=== PATIENT | male | born 1975 | race African-American/Black ===

== ENCOUNTER 2019-02-23 18:57 | Observation (INO) ==
[2019-02-23] MEDS ORDERED: SODIUM CHLORIDE 0.9% 1,000 ML IV STA (19:10)
[2019-02-23] MEDS ORDERED: INSULIN REGULAR 100 UNIT/ML IV STA (19:11)
[2019-02-23 20:05] LABS: Basophils # 0.1 10*3/uL (0.0-0.2); Basophils % 0.5 % (0.0-0.8); Eosinophils # 0.2 10*3/uL (0.0-0.87); Eosinophils % 2.1 % (0.00-10.9); Hematocrit 45.8 VOL% (42.0-52.0); Hemoglobin 14.7 GM/DL (14.0-18.0); Immature Granulocytes % 0.4 %; Immature Granulocytes Absolute 0.04 #; Lymphocytes # 3.2 10*3/uL (1.4-4.0); Lymphocytes % 34.6 % (21.2-54.2); Mean Corpuscular HGB Conc 32.1 GM/DL (32-36); Mean Corpuscular Volume 83.4 FL (87-102); Mean Platelet Volume 11.2 FL (9.6-12.0); Monocytes % 5.5 % (1.7-12.7); Neutrophils % 56.9 % (38.7-73.9); Platelet Count 311 T/CUMM (130-400); Red Blood Count 5.49 MC/CUMM (3.8-5.5); Red Cell Distribution Width 13.6 % (9.3-17.3); White Blood Count 9.4 T/CUMM (4-12)
[2019-02-23 20:08] LABS: Apearance,Urine CLEAR (Clear); Bilirubin,Urine Negative (Negative); Blood, Urine Negative (Negative); Glucose,Urine (UA) >=500 mg/dL (Negative); Ketones,Urine 20 mg/dL (Negative); Nitrite,Urine Negative (Negative); Protein,Urine Negative; RBC,Urine 1 /HPF (0-4); Urine Color Straw (Yellow); Urine Specific Gravity 1.032 (1.001-1.035); Urine Urobilinogen < 2.0 EU/DL (0.2-1.0)
[2019-02-23 20:30] LABS: Albumin 3.6 G/DL (3.4-5.0); Bilirubin,Total 0.8 MG/DL (0.2-1.0); Calcium 8.9 MG/DL (8.5-10.1); Osmolality,Calculated 277.8 MOS/KG (273-304); Total Protein 7.4 G/DL (6.4-8.3)
[2019-02-23] MEDS ORDERED: DEXTROSE 50% 25 GM/50 ML VIAL IV PRN ×2 (21:17)
[2019-02-23] MEDS ORDERED: ZALEPLON 5 MG CAPSULE PO PRN (21:17)
[2019-02-23] MEDS ORDERED: ACETAMINOPHEN 325 MG TABLET PO PRN (21:17)
[2019-02-23] MEDS ORDERED: GLUCAGON 1 MG VIAL IM PRN ×2 (21:17)
[2019-02-24] MEDS: SODIUM CHLORIDE 0.9% 1,000 ML IV SCH ×4 (00:26→23:57)
[2019-02-24] MEDS: ENOXAPARIN 40 MG/0.4 ML SYRINGE SUBCUT SCH ×2 (00:26→20:38)
[2019-02-24 07:18] LABS: Albumin 3.2 G/DL (3.4-5.0); Bilirubin,Total 1.1 MG/DL (0.2-1.0); Calcium 8.4 MG/DL (8.5-10.1); Osmolality,Calculated 282.8 MOS/KG (273-304); Total Protein 6.6 G/DL (6.4-8.3)
[2019-02-24] MEDS: INSULIN REGULAR 100 UNIT/ML SUBCUT SCH ×5 (08:34→20:49)
[2019-02-24] MEDS: PANTOPRAZOLE 40 MG TABLET PO SCH (08:36)
[2019-02-24] MEDS: INSULIN GLARGINE 100 UNIT/ML SUBCUT SCH (12:14)
[2019-02-25] MEDS: PANTOPRAZOLE 40 MG TABLET PO SCH (09:51)
[2019-02-25] MEDS: INSULIN REGULAR 100 UNIT/ML SUBCUT SCH ×3 (09:51→16:23)
[2019-02-25] MEDS: INSULIN GLARGINE 100 UNIT/ML SUBCUT SCH (09:53)
[2019-02-25] MEDS: SODIUM CHLORIDE 0.9% 1,000 ML IV SCH ×2 (09:57→16:21)
[2019-02-25 14:02] VITALS: BP 123/63
== END 2019-02-25 16:30 | disposition home or self-care (01) ==
LOC: EDUNIT# → EDBD → N.ED 18:57 → N.EDINP 18:57 → SUPCPDRO 21:17 → N.4E 22:08
PROVIDERS: ADMIT Internal Medicine; ATTEND Internal Medicine

== ENCOUNTER 2021-11-12 00:56 | Inpatient (IN) ==
[2021-11-12] MEDS ORDERED: SODIUM CHLORIDE 0.9% 1,000 ML IV STA ×4 (01:16→05:56)
[2021-11-12 01:29] LABS: Basophils # 0.1 10*3/uL (0.0-0.2); Basophils % 0.4 % (0.0-0.8); Eosinophils # 0.2 10*3/uL (0.0-0.87); Eosinophils % 1.7 % (0.00-10.9); Hemoglobin 14.3 GM/DL (14.0-18.0); Immature Granulocytes % 1.2 %; Immature Granulocytes Absolute 0.13 #; Lymphocytes # 2.4 10*3/uL (1.4-4.0); Lymphocytes % 21.1 % (21.2-54.2); Mean Corpuscular HGB Conc 31.8 GM/DL (32-36); Mean Corpuscular Volume 84.6 FL (87-102); Mean Platelet Volume 11.3 FL (9.6-12.0); Monocytes % 6.1 % (1.7-12.7); Neutrophils % 69.5 % (38.7-73.9); Platelet Count 358 T/CUMM (130-400); Red Blood Count 5.32 MC/CUMM (3.8-5.5); Red Cell Distribution Width 14.8 % (9.3-17.3); White Blood Count 11.2 T/CUMM (4-12)
[2021-11-12 01:48] LABS: Bilirubin,Total 0.4 MG/DL (0.20-1.00); Osmolality,Calculated 279.4 MOS/KG (273-304); Potassium 3.7 MMOL/L (3.5-5.1); Total Protein 6.4 G/DL (6.4-8.2)
[2021-11-12 02:55] LABS: Hematocrit 38.5 VOL% (42.0-52.0); Hemoglobin 12.4 GM/DL (14.0-18.0)
[2021-11-12 03:07] LABS: INR 1.2; PT Patient Result 13.1 SECS (10.5-12.0); Partial Thromboplastin Time 27.3 SECS (23.8-32.1)
[2021-11-12] MEDS ORDERED: SODIUM CHLORIDE 0.9% 1,000 ML IV PRN ×2 (04:16→05:04)
[2021-11-12] MEDS ORDERED: ALBUTEROL 2.5 MG/3 ML NEB RESP TX PRN (05:00)
[2021-11-12] MEDS ORDERED: MORPHINE 2 MG/1 ML SYRINGE IV PRN (05:04)
[2021-11-12] MEDS ORDERED: PHENYLEPHRINE DRIP 40 MG/250 ML PREMIX IV ONE (05:53)
[2021-11-12] MEDS ORDERED: PHENYLEPHRINE DRIP 40 MG/250 ML PREMIX IV PRN (05:56)
[2021-11-12] MEDS ORDERED: NOREPINEPHRINE 16 MG in SODIUM CHLORIDE 0.9% 234 ML IV PRN (05:57)
[2021-11-12] MEDS ORDERED: NOREPINEPHRINE 8 MG in SODIUM CHLORIDE 0.9% 242 ML IV PRN (05:58)
[2021-11-12] MEDS: SODIUM CHLORIDE 0.9% 1,000 ML IV SCH ×5 (06:40→21:30)
[2021-11-12] MEDS: PANTOPRAZOLE INJ 80 MG in SODIUM CHLORIDE 0.9% 100 ML IV ONE ×2 (06:50→09:18)
[2021-11-12] MEDS ORDERED: fentaNYL 100 MCG/2 ML VIAL ONE (06:52)
[2021-11-12] MEDS ORDERED: PANTOPRAZOLE INJ 80 MG in SODIUM CHLORIDE 0.9% 100 ML IV ONE (07:00)
[2021-11-12] MEDS ORDERED: propofoL 200 MG/20 ML VIAL IV ONE (07:45)
[2021-11-12] MEDS ORDERED: ONDANSETRON 4 MG/2 ML VIAL ONE (07:45)
[2021-11-12] MEDS ORDERED: SEVOFLURANE 1 UNIT/15 MINUTE INH ONE (07:45)
[2021-11-12] MEDS ORDERED: PHENYLEPHRINE 1 MG/10 ML SYRINGE IV ONE (07:45)
[2021-11-12] MEDS ORDERED: LIDOCAINE 2% 5 ML VIAL ONE (07:45)
[2021-11-12] MEDS ORDERED: ETOMIDATE 40 MG/20 ML VIAL IV ONE (07:45)
[2021-11-12] MEDS ORDERED: SUCCINYLCHOLINE 200 MG/10 ML VIAL ONE (07:46)
[2021-11-12] MEDS ORDERED: PANTOPRAZOLE INJ 200 MG in SODIUM CHLORIDE 0.9% 250 ML IV SCH (08:00)
[2021-11-12] MEDS ORDERED: EPINEPHrine 1 MG/ML VIAL ONE (08:23)
[2021-11-12] MEDS ORDERED: PROMETHAZINE INJ 12.5 MG in SODIUM CHLORIDE 0.9% 50 ML IV PRN (08:28)
[2021-11-12 09:34] LABS: Basophils % 0.2 % (0.0-0.8); Eosinophils % 0.2 % (0.00-10.9); Hemoglobin 11.4 GM/DL (14.0-18.0); Immature Granulocytes % 2.7 %; Immature Granulocytes Absolute 0.46 #; Lymphocytes # 2.7 10*3/uL (1.4-4.0); Lymphocytes % 16.3 % (21.2-54.2); Mean Corpuscular HGB Conc 31.7 GM/DL (32-36); Mean Corpuscular Volume 86.7 FL (87-102); Mean Platelet Volume 11.2 FL (9.6-12.0); Monocytes % 5.3 % (1.7-12.7); Neutrophils % 75.3 % (38.7-73.9); Platelet Count 434 T/CUMM (130-400); Red Blood Count 4.15 MC/CUMM (3.8-5.5); Red Cell Distribution Width 15.2 % (9.3-17.3); White Blood Count 16.7 T/CUMM (4-12)
[2021-11-12 10:30] LABS: Basophils % 0.2 % (0.0-0.8); Eosinophils % 0.1 % (0.00-10.9); Hematocrit 34.4 VOL% (42.0-52.0); Immature Granulocytes % 2.4 %; Immature Granulocytes Absolute 0.42 #; Lymphocytes # 2.5 10*3/uL (1.4-4.0); Lymphocytes % 14.4 % (21.2-54.2); Mean Corpuscular Volume 85.8 FL (87-102); Mean Platelet Volume 10.6 FL (9.6-12.0); Monocytes % 5.6 % (1.7-12.7); Neutrophils % 77.3 % (38.7-73.9); Platelet Count 396 T/CUMM (130-400); Red Blood Count 4.01 MC/CUMM (3.8-5.5); Red Cell Distribution Width 15.1 % (9.3-17.3); White Blood Count 17.6 T/CUMM (4-12)
[2021-11-12] MEDS: INSULIN LISPRO 100 UNIT/ML SUBCUT SCH ×3 (13:04→20:11)
[2021-11-12 14:15] LABS: Basophils % 0.2 % (0.0-0.8); Eosinophils % 0.2 % (0.00-10.9); Hematocrit 33.4 VOL% (42.0-52.0); Hemoglobin 10.6 GM/DL (14.0-18.0); Immature Granulocytes % 1.7 %; Immature Granulocytes Absolute 0.28 #; Lymphocytes # 2.9 10*3/uL (1.4-4.0); Lymphocytes % 17.9 % (21.2-54.2); Mean Corpuscular HGB Conc 31.7 GM/DL (32-36); Mean Corpuscular Volume 84.8 FL (87-102); Mean Platelet Volume 10.3 FL (9.6-12.0); Monocytes % 6.8 % (1.7-12.7); Neutrophils % 73.2 % (38.7-73.9); Platelet Count 373 T/CUMM (130-400); Red Blood Count 3.94 MC/CUMM (3.8-5.5); White Blood Count 16.1 T/CUMM (4-12)
[2021-11-12] MEDS: SUCRALFATE 1 GM/10 ML UDCUP PO SCH (18:34)
[2021-11-12 18:47] LABS: Basophils % 0.2 % (0.0-0.8); Eosinophils # 0.1 10*3/uL (0.0-0.87); Eosinophils % 0.4 % (0.00-10.9); Hemoglobin 9.8 GM/DL (14.0-18.0); Immature Granulocytes % 1.2 %; Immature Granulocytes Absolute 0.16 #; Lymphocytes # 2.8 10*3/uL (1.4-4.0); Mean Corpuscular HGB Conc 31.6 GM/DL (32-36); Mean Corpuscular Volume 86.6 FL (87-102); Mean Platelet Volume 10.7 FL (9.6-12.0); Monocytes % 6.9 % (1.7-12.7); Neutrophils % 70.3 % (38.7-73.9); Platelet Count 325 T/CUMM (130-400); Red Blood Count 3.58 MC/CUMM (3.8-5.5); Red Cell Distribution Width 15.2 % (9.3-17.3); White Blood Count 13.5 T/CUMM (4-12)
[2021-11-12] MEDS: PANTOPRAZOLE 40 MG VIAL IV SCH (20:11)
[2021-11-12 22:30] LABS: Bacteria,Urine Occasional /HPF (Few); Hyaline Casts,Urine 6 /LPF (0-3); Mucus,Urine Occasional /LPF (Occasional); RBC,Urine 1 /HPF (0-4); Urine Appearance Clear (Clear); Urine Color Yellow (Yellow)
[2021-11-12 22:31] LABS: Bilirubin,Urine Negative (Negative); Blood, Urine Trace mg/dL (Negative); Glucose,Urine (UA) Negative (Negative); Ketones,Urine 15 mg/dL (Negative); Nitrite,Urine Negative (Negative); Protein,Urine Negative (Negative); Urine Urobilinogen 0.2 eU/dL (<2.0); Urine pH 5.5 (4.5-8.0)
[2021-11-13] MEDS: SUCRALFATE 1 GM/10 ML UDCUP PO SCH ×5 (00:12→23:46)
[2021-11-13 00:37] LABS: Basophils % 0.2 % (0.0-0.8); Eosinophils # 0.1 10*3/uL (0.0-0.87); Eosinophils % 0.9 % (0.00-10.9); Hematocrit 26.5 VOL% (42.0-52.0); Hemoglobin 8.6 GM/DL (14.0-18.0); Immature Granulocytes % 1.1 %; Immature Granulocytes Absolute 0.13 #; Lymphocytes # 2.9 10*3/uL (1.4-4.0); Mean Corpuscular HGB Conc 32.5 GM/DL (32-36); Mean Platelet Volume 10.8 FL (9.6-12.0); Monocytes % 7.5 % (1.7-12.7); Neutrophils % 66.3 % (38.7-73.9); Platelet Count 283 T/CUMM (130-400); Red Blood Count 3.08 MC/CUMM (3.8-5.5); Red Cell Distribution Width 15.2 % (9.3-17.3)
[2021-11-13] MEDS: SODIUM CHLORIDE 0.9% 1,000 ML IV SCH (04:10)
[2021-11-13 06:56] LABS: Basophils % 0.4 % (0.0-0.8); Eosinophils # 0.2 10*3/uL (0.0-0.87); Eosinophils % 1.5 % (0.00-10.9); Hematocrit 26.3 VOL% (42.0-52.0); Hemoglobin 8.4 GM/DL (14.0-18.0); Immature Granulocytes % 0.9 %; Immature Granulocytes Absolute 0.09 #; Lymphocytes # 2.7 10*3/uL (1.4-4.0); Lymphocytes % 26.8 % (21.2-54.2); Mean Corpuscular HGB Conc 31.9 GM/DL (32-36); Mean Corpuscular Volume 86.2 FL (87-102); Mean Platelet Volume 10.7 FL (9.6-12.0); Monocytes % 7.7 % (1.7-12.7); Neutrophils % 62.7 % (38.7-73.9); Platelet Count 275 T/CUMM (130-400); Red Blood Count 3.05 MC/CUMM (3.8-5.5); Red Cell Distribution Width 15.1 % (9.3-17.3)
[2021-11-13] MEDS: PANTOPRAZOLE 40 MG VIAL IV SCH ×2 (08:51→20:43)
[2021-11-13] MEDS: INSULIN LISPRO 100 UNIT/ML SUBCUT SCH ×4 (08:51→20:44)
[2021-11-13 10:58] LABS: Alanine Aminotransferase 34 U/L (16-61); Alkaline Phosphatase 45 U/L (45-117); Aspartate Amino Transferase 19 U/L (0-37); Bilirubin,Total < 0.39 MG/DL (0.20-1.00); Blood Urea Nitrogen 10 MG/DL (7-18); Calcium 7.5 MG/DL (8.5-10.1); Carbon Dioxide 24 MMOL/L (21-32); Estimated Glom Filtration Rate 146 ML/MIN; Glucose 109 MG/DL (74-106); Osmolality,Calculated 280.3 MOS/KG (273-304); Sodium 141 MMOL/L (136-145); Total Protein 4.8 G/DL (6.4-8.2)
[2021-11-13 12:23] LABS: Basophils % 0.3 % (0.0-0.8); Eosinophils # 0.2 10*3/uL (0.0-0.87); Eosinophils % 1.6 % (0.00-10.9); Hematocrit 25.7 VOL% (42.0-52.0); Hemoglobin 8.1 GM/DL (14.0-18.0); Immature Granulocytes % 0.8 %; Immature Granulocytes Absolute 0.08 #; Lymphocytes # 2.9 10*3/uL (1.4-4.0); Lymphocytes % 28.6 % (21.2-54.2); Mean Corpuscular HGB Conc 31.5 GM/DL (32-36); Mean Corpuscular Volume 84.3 FL (87-102); Monocytes % 7.5 % (1.7-12.7); Neutrophils % 61.2 % (38.7-73.9); Platelet Count 286 T/CUMM (130-400); Red Blood Count 3.05 MC/CUMM (3.8-5.5)
[2021-11-14] MEDS: SUCRALFATE 1 GM/10 ML UDCUP PO SCH ×3 (05:04→18:25)
[2021-11-14 05:17] LABS: Basophils % 0.3 % (0.0-0.8); Eosinophils # 0.2 10*3/uL (0.0-0.87); Eosinophils % 2.4 % (0.00-10.9); Hematocrit 21.8 VOL% (42.0-52.0); Hemoglobin 6.9 GM/DL (14.0-18.0); Immature Granulocytes % 0.7 %; Immature Granulocytes Absolute 0.06 #; Lymphocytes # 2.6 10*3/uL (1.4-4.0); Lymphocytes % 29.9 % (21.2-54.2); Mean Corpuscular HGB Conc 31.7 GM/DL (32-36); Mean Corpuscular Volume 86.2 FL (87-102); Mean Platelet Volume 10.8 FL (9.6-12.0); Monocytes % 8.5 % (1.7-12.7); Neutrophils % 58.2 % (38.7-73.9); Platelet Count 247 T/CUMM (130-400); Red Blood Count 2.53 MC/CUMM (3.8-5.5); Red Cell Distribution Width 15.3 % (9.3-17.3); White Blood Count 8.7 T/CUMM (4-12)
[2021-11-14] MEDS ORDERED: SODIUM CHLORIDE 0.9% 1,000 ML IV PRN (05:50)
[2021-11-14] MEDS: INSULIN LISPRO 100 UNIT/ML SUBCUT SCH ×4 (07:48→21:25)
[2021-11-14] MEDS: PANTOPRAZOLE 40 MG VIAL IV SCH ×2 (09:13→21:06)
[2021-11-14 14:51] LABS: Basophils % 0.4 % (0.0-0.8); Eosinophils # 0.2 10*3/uL (0.0-0.87); Eosinophils % 2.3 % (0.00-10.9); Hematocrit 26.4 VOL% (42.0-52.0); Immature Granulocytes % 1.2 %; Immature Granulocytes Absolute 0.12 #; Lymphocytes # 2.5 10*3/uL (1.4-4.0); Lymphocytes % 25.2 % (21.2-54.2); Mean Corpuscular HGB Conc 32.6 GM/DL (32-36); Mean Corpuscular Volume 83.8 FL (87-102); Mean Platelet Volume 10.3 FL (9.6-12.0); Monocytes % 6.7 % (1.7-12.7); Neutrophils % 64.2 % (38.7-73.9); Platelet Count 262 T/CUMM (130-400); White Blood Count 9.8 T/CUMM (4-12)
[2021-11-14 14:52] LABS: Hemoglobin 8.6 GM/DL (14.0-18.0); Red Blood Count 3.15 MC/CUMM (3.8-5.5)
[2021-11-15] MEDS: SUCRALFATE 1 GM/10 ML UDCUP PO SCH ×5 (00:58→23:40)
[2021-11-15 04:10] LABS: Basophils % 0.4 % (0.0-0.8); Eosinophils # 0.2 10*3/uL (0.0-0.87); Eosinophils % 2.3 % (0.00-10.9); Hematocrit 25.4 VOL% (42.0-52.0); Hemoglobin 8.3 GM/DL (14.0-18.0); Immature Granulocytes % 0.7 %; Immature Granulocytes Absolute 0.07 #; Lymphocytes # 2.5 10*3/uL (1.4-4.0); Lymphocytes % 25.5 % (21.2-54.2); Mean Corpuscular HGB Conc 32.7 GM/DL (32-36); Mean Corpuscular Volume 86.1 FL (87-102); Mean Platelet Volume 10.6 FL (9.6-12.0); Monocytes % 7.2 % (1.7-12.7); Neutrophils % 63.9 % (38.7-73.9); Platelet Count 261 T/CUMM (130-400); Red Blood Count 2.95 MC/CUMM (3.8-5.5); White Blood Count 9.9 T/CUMM (4-12)
[2021-11-15 04:31] LABS: Calcium 7.8 MG/DL (8.5-10.1); Osmolality,Calculated 274.4 MOS/KG (273-304); Potassium 3.2 MMOL/L (3.5-5.1)
[2021-11-15] MEDS: INSULIN LISPRO 100 UNIT/ML SUBCUT SCH ×4 (07:52→21:02)
[2021-11-15] MEDS ORDERED: MAGNESIUM SULF RIDER 2 GM/50 ML PREMIX IV ONE (09:27)
[2021-11-15] MEDS: POTASSIUM CHLORIDE 20 MEQ TABLET PO SCH ×2 (09:41→12:42)
[2021-11-15] MEDS: PANTOPRAZOLE 40 MG VIAL IV SCH ×2 (09:42→21:09)
[2021-11-15] MEDS: ONDANSETRON 4 MG/2 ML VIAL IV PRN (21:05)
[2021-11-16 03:51] LABS: Basophils % 0.4 % (0.0-0.8); Eosinophils # 0.2 10*3/uL (0.0-0.87); Eosinophils % 1.8 % (0.00-10.9); Hematocrit 26.4 VOL% (42.0-52.0); Hemoglobin 8.7 GM/DL (14.0-18.0); Immature Granulocytes % 0.6 %; Immature Granulocytes Absolute 0.07 #; Lymphocytes # 2.5 10*3/uL (1.4-4.0); Mean Corpuscular Volume 86.6 FL (87-102); Mean Platelet Volume 10.5 FL (9.6-12.0); Monocytes % 6.7 % (1.7-12.7); Neutrophils % 67.5 % (38.7-73.9); Platelet Count 296 T/CUMM (130-400); Red Blood Count 3.05 MC/CUMM (3.8-5.5); White Blood Count 11.1 T/CUMM (4-12)
[2021-11-16 04:09] LABS: Calcium 8.1 MG/DL (8.5-10.1); Osmolality,Calculated 272.5 MOS/KG (273-304); Potassium 3.5 MMOL/L (3.5-5.1)
[2021-11-16] MEDS: SUCRALFATE 1 GM/10 ML UDCUP PO SCH ×3 (05:42→17:04)
[2021-11-16] MEDS: INSULIN LISPRO 100 UNIT/ML SUBCUT SCH ×4 (08:37→20:59)
[2021-11-16] MEDS ORDERED: HEPARIN 5,000 UNIT/1 ML VIAL ONE (08:47)
[2021-11-16] MEDS ORDERED: BUPIVACAINE MPF 0.25% 30 ML VIAL ONE (08:47)
[2021-11-16] MEDS ORDERED: LIDOCAINE 1%/EPI INJ 20 ML VIAL ONE (08:47)
[2021-11-16] MEDS: PANTOPRAZOLE 40 MG VIAL IV SCH ×2 (09:43→20:59)
[2021-11-16] MEDS: ONDANSETRON 4 MG/2 ML VIAL IV PRN (16:01)
[2021-11-17] MEDS: SUCRALFATE 1 GM/10 ML UDCUP PO SCH ×2 (01:20→05:29)
[2021-11-17 03:45] LABS: Basophils # 0.1 10*3/uL (0.0-0.2); Basophils % 0.5 % (0.0-0.8); Eosinophils # 0.2 10*3/uL (0.0-0.87); Eosinophils % 2.5 % (0.00-10.9); Hematocrit 27.3 VOL% (42.0-52.0); Hemoglobin 8.8 GM/DL (14.0-18.0); Immature Granulocytes % 0.5 %; Immature Granulocytes Absolute 0.05 #; Lymphocytes # 2.6 10*3/uL (1.4-4.0); Lymphocytes % 26.4 % (21.2-54.2); Mean Corpuscular HGB Conc 32.2 GM/DL (32-36); Mean Corpuscular Volume 86.9 FL (87-102); Mean Platelet Volume 10.5 FL (9.6-12.0); Monocytes % 6.6 % (1.7-12.7); Neutrophils % 63.5 % (38.7-73.9); Platelet Count 330 T/CUMM (130-400); Red Blood Count 3.14 MC/CUMM (3.8-5.5); Red Cell Distribution Width 15.6 % (9.3-17.3); White Blood Count 9.7 T/CUMM (4-12)
[2021-11-17 04:08] LABS: Osmolality,Calculated 272.5 MOS/KG (273-304); Potassium 3.4 MMOL/L (3.5-5.1)
[2021-11-17] MEDS: INSULIN LISPRO 100 UNIT/ML SUBCUT SCH (07:47)
[2021-11-17] MEDS: PANTOPRAZOLE 40 MG VIAL IV SCH (09:41)
[2021-11-17 10:39] VITALS: BP 131/67
== END 2021-11-17 10:28 | disposition home or self-care (01) | DRG 393 ==
LOC: N.ED 00:56 → N.CC 05:01 → SUATTDRO 05:01 → N.CC 06:35
PROVIDERS: ADMIT Internal Medicine; ATTEND Family Medicine